=== PATIENT | female | born 1970 | race Caucasian/White ===

== ENCOUNTER 2016-10-21 05:46 | Observation (INO) | payer BC ==
[2016-10-15 11:48] VITALS: BMI 32.0
--- NOTE | 2016-10-15 12:19 | PAT Medication Instructions ---
Service Date Oct 15, 2016. Current Home Medication List Cetirizine (Zyrtec), 10 MG PO QAM Cyanocobalamin (Vitamin B12 500MCG), 3,000 MCG PO 2XWEEK Ergocalciferol (Vitamin D 08111 Unit), 1 TAB PO WK Pantoprazole (Protonix), 40 MG PO BID PRN for RN Topiramate (Topamax), 50 MG PO BID [Vitamin B12 Inj], 1 DOSE INJ MONTHLY Medication Instructions For Your Scheduled Surgery - Continue as usual: Ergocalciferol (Vitamin D 52380 Unit), 1 TAB PO WK [Vitamin B12 Inj], 1 DOSE INJ MONTHLY Cyanocobalamin (Vitamin B12 500MCG), 3,000 MCG PO 2XWEEK - Hold the following medications the morning of surgery: Cetirizine (Zyrtec), 10 MG PO QAM - Take the following medications the morning of surgery with a sip of water: Topiramate (Topamax), 50 MG PO BID Pantoprazole (Protonix), 40 MG PO BID PRN for RN - Take the following medications as scheduled the night before surgery: Topiramate (Topamax), 50 MG PO BID Pantoprazole (Protonix), 40 MG PO BID PRN for RN If you have any questions please call us at [phone] (Natalia Mahan PA-C) or [phone] or [phone]
[2016-10-15 13:24] LABS: PARTIAL THROMBOPLASTIN RATIO 1.1; PROTHROMBIN TIME (PATIENT) 10.7 SECONDS (9.0-12.0)
[2016-10-15 13:33] LABS: BASO % 0.7 %; BASO ABS # 0.04 K/uL (0-0.2); COMPLETE YES; EOS % 2.4 %; HEMATOCRIT 40.2 % (37-47); IG% 0.2 %; LYMPH % 41.8 %; LYMPH ABS # 2.31 K/uL (1.2-3.4); MEAN CELL VOLUME 90.5 fL (80-100); MEAN CORPUSCULAR HEMOGLOBIN 31.8 pg (25-34); MEAN CORPUSCULAR HGB CONC 35.1 g/dl (32-36); MEAN PLATELET VOLUME 10.3 fL (7.4-10.4); MONO % 6.5 %; NEUT % 48.4 %; PLATELET COUNT 226 K/uL (130-400); RED BLOOD COUNT 4.44 M/uL (4.2-5.4); WHITE BLOOD COUNT 5.53 K/uL (4.8-10.8)
[2016-10-15 16:59] LABS: POTASSIUM 4.2 mmol/L (3.5-5.1)
[2016-10-15 17:00] LABS: CALCIUM 9.2 mg/dl (8.5-10.1)
[2016-10-15 17:01] LABS: BUN/CREATININE RATIO 19.9 (10-20)
[2016-10-21] VITALS (10 sets, daily range): BP systolic 94–118; BP diastolic 57–72; PULSE 56–86; TEMP 36–36.8; O2SAT 96–100; Ht 157.5 cm; Wt 80.6 kg
[~2016-10-21] VITALS: Ht 157.5 cm; Wt 80.6 kg
[~2016-10-21 05:46] MED LIST: CETI10TA84 PO; CYAN500T13 PO; ERGO1CAP41 PO; PANT40TA PO; TOPI50TA16 PO; VITAMIN B12 INJ INJ
[2016-10-21] MEDS ORDERED: ENOXAPARIN 40 MG/0.4 ML SYR SQ SCH ×2 (06:00)
[2016-10-21] MEDS ORDERED: CLINDAMYCIN 600 MG/54 ML D5W IV SCH (06:00)
[2016-10-21] MEDS ORDERED: LACTATED RINGER'S 1000ML 1,000 ML IV SCH (06:00)
[2016-10-21] MEDS ORDERED: MIDAZOLAM HCL 1 MG/ML 2ML VIAL ONE (06:47)
[2016-10-21] MEDS ORDERED: FENTANYL CITRATE INJ 50 MCG/1 ML 2 ML VIAL ONE ×4 (06:48→09:44)
[2016-10-21] MEDS ORDERED: SCOPOLAMINE 1.5 MG TDSY TD SCH (07:00)
[2016-10-21] MEDS ORDERED: SCOPOLAMINE 1.5 MG TDSY TD ONE (07:05)
--- NOTE | 2016-10-21 07:09 | History & Physical Bridge Note ---
H&P Re-Evaluation Bridge Note: I have examined the patient, reviewed the History & Physical and in the interval since the performance of the History & Physical I have noted the following changes of clinical significance: Patient prefers to be as small as possible following procedure. No changes noted
[2016-10-21] MEDS ORDERED: FENTANYL CITRATE INJ 50 MCG/1 ML 2 ML VIAL IV PRN (08:00)
[2016-10-21] MEDS ORDERED: ONDANSETRON INJ 2 MG/ML 2 ML VIAL IV PRN ×2 (08:00→11:30)
[2016-10-21] MEDS ORDERED: EpHEDrine SULFATE INJ 50 MG/ML AMP IV PRN (08:00)
[2016-10-21] MEDS ORDERED: HYDROmorphone INJ 1 MG/ML SYR IV PRN (08:00)
[2016-10-21] MEDS ORDERED: ATROPINE SULFATE 0.1 MG/ML 5ML SYR IV PRN (08:00)
[2016-10-21] MEDS ORDERED: LIDOCAINE HCL 2% 2 ML VIAL (20MG/ML) ONE (08:32)
[2016-10-21] MEDS ORDERED: ROCURONIUM BROMIDE 10 MG/ML 5 ML VIAL ONE (08:32)
[2016-10-21] MEDS ORDERED: PROPOFOL IV EMULSION 10 MG/ML 20 ML VIAL IV ONE (08:32)
[2016-10-21] MEDS ORDERED: DEXAMETHASONE SOD INJ 4 MG/ML VIAL ONE (10:08)
[2016-10-21] MEDS ORDERED: ONDANSETRON INJ 2 MG/ML 2 ML VIAL ONE (10:08)
[2016-10-21] MEDS ORDERED: ACETAMINOPHEN 1000 MG/100 ML IV IV ONE (10:26)
[2016-10-21] MEDS ORDERED: LIDOCAINE/EPINEPHRINE 1% 20 ML VIAL INJ ONE (10:49)
[2016-10-21] MEDS ORDERED: BUPIVACAINE 0.25% 30 ML VIAL INJ ONE (10:49)
--- NOTE | 2016-10-21 11:13 | [facility] Post Operative Brief Note ---
Immediate Operative Summary Operative Date Oct 21, 2016. Pre-Operative Diagnosis Bilateral Symptomatic Macromastia Post-Operative Diagnosis Bilateral Symptomatic Macromastia Procedure(s) Performed Bilateral Breast Reduction Surgeon Dr. Priscilla Harrington [employer] Surgeon(s) Kalee Bowers PA-C Estimated Blood Loss 100ml Findings bilateral NACs pink and viable at close of case Specimens A. Left Breast Tissue-Weight 518 grams-Sent to lab at 0906. B. Right Breast Tissue-Weight 450 grams-Sent to lab at 1032. Drains JPx2 Anesthesia GET Complication(s) None Disposition Recovery Room / PACU
[2016-10-21] MEDS ORDERED: MoRPHine SULFATE 2 MG/ML CARP IV PRN ×2 (11:30)
[2016-10-21] MEDS ORDERED: PROMETHAZINE HCL INJ 12.5 MG in SODIUM CHLORIDE 0.9% 50ML 50 ML IV PRN (11:30)
[2016-10-21] MEDS ORDERED: MoRPHine SULFATE 4 MG/ML 1 ML CARP\\VIAL IV PRN (11:30)
[2016-10-21] MEDS ORDERED: PANTOprazole SOD 40 MG TAB PO PRN (11:30)
[2016-10-21] MEDS ORDERED: ACETAMINOPHEN 325 MG TAB PO PRN (11:30)
[2016-10-21] MEDS ORDERED: DiphenhydrAMINE HCL 50 MG/ML VIAL IV PRN (11:30)
[2016-10-21] MEDS ORDERED: OXYCODONE/ACETAMINOPHEN 5-325 TAB PO PRN ×2 (11:30)
[2016-10-21] MEDS ORDERED: OXAZEPAM 10MG CAP PO PRN (11:30)
[2016-10-21] MEDS ORDERED: IV FLUIDS COMPLETED PRN (11:45)
--- NOTE | 2016-10-21 12:04 | Anesthesiology Progress Note ---
Anesthesia Post Op Note Date & Time Oct 21, 2016 at 12:04 Vital Signs Pain Intensity: 0 Vital Signs Past 12 Hours Date Time Temp Pulse Resp B/P Pulse Ox O2 Delivery O2 Flow Rate FiO2 10/21/16 11:28 36.0 81 12 124/73 100 Mask 10 10/21/16 06:06 36.3 86 16 118/63 99 Room Air Notes Mental Status: alert / awake / arousable, participated in evaluation Pt Amnestic to Procedure: Yes Nausea / Vomiting: adequately controlled Pain: adequately controlled Airway Patency, RR, SpO2: stable & adequate BP & HR: stable & adequate Hydration State: stable & adequate Anesthetic Complications: no major complications apparent
[2016-10-21] MEDS ORDERED: MoRPHine SULFATE 4 MG/ML 1 ML CARP\\VIAL ONE (12:30)
[2016-10-21] MEDS: CHECK SCOPOLAMINE PATCH PLACEMENT SCH ×3 (13:03→23:32)
[2016-10-21] MEDS: LACTATED RINGER'S 1000ML 1,000 ML IV SCH ×2 (13:50→23:32)
--- NOTE | 2016-10-21 14:52 | OPERATIVE REPORT ---
DATE OF OPERATION: 10/21/2016 PREOPERATIVE DIAGNOSIS: Bilateral symptomatic macromastia. POSTOPERATIVE DIAGNOSIS: Same. PROCEDURE: Bilateral reduction mammoplasty. SURGEON: Dr. Priscilla Harrington. THERAPY TECH: Kalee Bowers PA-C. ANESTHESIA: General. COMPLICATIONS: None. INDICATION FOR THE PROCEDURE: The patient is a 46-year-old female who presented to my office for evaluation for breast reduction surgery after having longstanding complaints of back, neck and shoulder pain as well as headaches despite significant weight loss. BRIEF DESCRIPTION OF THE PROCEDURE: Risks, benefits, and alternatives of the procedure were explained to the patient, who agreed and signed consent. She was identified and marked in the preoperative holding area. She was brought to the operating room, where she was positioned supine and placed under general anesthesia without incident. The surgical site was prepped and draped sterilely. A time-out procedure was performed. Markings were reassessed and a 7-cm pedicle was marked. I began with the left side. 1% lidocaine with epinephrine was used to anesthetize the planned incisions. A 38-mm cookie cutter was used to circumscribe the nipple-areolar complex. The previously marked 7-cm pedicle was incised using a 15 blade scalpel and deepithelialized. I began with the medial dissection of the pedicle using electrocautery. Cautery was used to incise through dermis and breast parenchyma down to the chest wall, taking care not to undermine the pedicle during dissection. A similar procedure was undertaken on the lateral aspect of the pedicle again taking care not to undercut the pedicle. Lastly, the pedicle was dissected out superiorly using electrocautery. This was carried down to chest wall. I then began incision of the medial breast tissue followed by lateral aspect of the breast tissue. A 15 blade scalpel was used to make the inframammary fold incision and electrocautery was used to deepen the incision through dermis and breast parenchyma. Dissection was then carried superiorly to the length of the superior incision. Superior incision was then incised using a 15 blade scalpel and again dissected using electrocautery. A similar procedure was undertaken laterally and then around the keyhole portion of the incision. Care was taken to leave some fat on the lateral pectoral fascia in order to protect the T4 intercostal nerve. Hemostasis was achieved with electrocautery. Specimen was passed off for weighing. The left breast tissue weight was 518 grams. The wound was irrigated with normal saline. Hemostasis was achieved with electrocautery. 0.25% Marcaine plain was used to anesthetize the incisions as well as the pectoralis fascia. A 15-Kazakh Daryl drain was brought out through a separate stab incision. The nipple-areolar complex was advanced into the keyhole using 2-0 Vicryl deep dermal suture. The T-junction was approximated using 2-0 Vicryl deep dermal suture. The wound was closed first in lateral to mid breast direction using 2-0 Vicryl deep dermal sutures and then medial to mid breast using 2-0 Vicryl deep dermal sutures. Vertical limb was reapproximated using 2-0 Vicryl deep dermals. The nipple-areolar complex was also inset using 2-0 Vicryl deep dermals. Next, the superficial dermal layer was closed using 2-0 PDO running Quill suture along the inframammary fold and 3-0 PDS for the vertical limb and nipple-areolar complex incisions. Lastly, a 3-0 Monocryl running subcuticular suture was placed. The inframammary fold as well as vertical limb were dressed using Prineo and Dermabond was placed around the nipple-areolar complex. A similar procedure was undertaken on the right side. Total resection weight for the right breast, which was smaller in size preoperatively, 450 grams. At the end of the case nipple-areolar complexes were pink and viable and there was excellent symmetry between the breasts. Dry dressings and a surgical bra were placed. The patient was awakened and transferred to the recovery room in satisfactory condition. Kalee Bowers PA-C was present and scrubbed throughout the entire procedure and was instrumental in providing retraction during dissection of the pedicle as well as assisting in simultaneous wound closure. I attest to the content of the Intraoperative Record and any orders documented therein. Any exceptio ns are noted below.
[2016-10-21] MEDS: CLINDAMYCIN IV 600 MG in DEXTROSE 5% ADD-VANTAGE 50ML 50 ML IV SCH ×2 (15:49→23:32)
[2016-10-21] MEDS: TOPIRAMATE 25 MG TAB PO SCH (21:41)
[2016-10-22 03:51] VITALS: BP 94/58; PULSE 60; TEMP 37; O2SAT 96
[2016-10-22 07:58] VITALS: BP 89/54; PULSE 62; TEMP 36.9; O2SAT 96
--- NOTE | 2016-10-22 08:13 | Anesthesiology Progress Note ---
Anesthesia Post Op Note Date & Time Oct 22, 2016 at 08:12 Vital Signs Vital Signs Past 12 Hours Date Time Temp Pulse Resp B/P Pulse Ox O2 Delivery O2 Flow Rate FiO2 10/22/16 07:58 36.9 62 18 89/54 96 Room Air 10/22/16 03:51 37.0 60 16 94/58 96 Room Air 10/21/16 23:45 36.7 56 14 94/57 98 Room Air 10/21/16 23:35 Room Air Notes Mental Status: alert / awake / arousable, participated in evaluation Pt Amnestic to Procedure: Yes Nausea / Vomiting: adequately controlled Pain: adequately controlled Airway Patency, RR, SpO2: stable & adequate BP & HR: stable & adequate Hydration State: stable & adequate Anesthetic Complications: no major complications apparent
[2016-10-22 08:22] VITALS: BP 95/64
[2016-10-22] MEDS: CLINDAMYCIN IV 600 MG in DEXTROSE 5% ADD-VANTAGE 50ML 50 ML IV SCH (08:29)
[2016-10-22] MEDS: CHECK SCOPOLAMINE PATCH PLACEMENT SCH (08:30)
[2016-10-22] MEDS: TOPIRAMATE 25 MG TAB PO SCH (08:31)
--- NOTE | 2016-10-22 08:52 | Discharge Instructions ---
Discharge Instructions Admission Reason for Admission: Bilateral Symptomatic Macromastia Discharge Discharge Diagnosis / Problem: macromastia Discharge Goals Goal(s): Decrease discomfort Activity Recommendations Activity Limitations: as noted below ACTIVITY RECOMMENDATIONS: __Normal activities _x_No bending, lifting or straining __No driving __Driving allowed when you are off pain medications __Walking permitted __You should have help at home for ___ days DRESSINGS: __No dressings required _x_Keep dressings dry/in place until first office visit __Remove dressings ___ and leave dressings off __Apply ice ___ days __Remove dressings and reapply garment __Apply antibiotic ointment (Bacitracin, Neosporin, etc) to wounds 3-4 times/ day for 10 days BATHING: _x_Keep dressings dry _x_Sponge bathing permitted __Showering permitted _x_No swimming, hot tubs or soaking in a tub MEDICATIONS: Resume previous medications unless instructed otherwise by your surgeon. _x_Do not use aspirin, Motrin, Advil or Ibuprofen as these may promote bleeding. Please use Tylenol. _x_Prescription(s) provided: pain medication provided at your last office visit OTHER INSTRUCTIONS: __Record drain output 2-3 times per day SPECIAL CARE INSTRUCTIONS: * It is normal to have a mild fever after surgery. If your temperature is higher than 101.5 degrees F, please call the office at [phone]. * Constipation is a typical side effect of pain medication. An over-the- counter stool softener will help relieve this. * Leaking around surgical drains may occur and should not cause concern. Sometimes these drains become clogged. If this happens, remove the bulb and milk the clot out of the tube, then replace the bulb. * Drainage from wounds after liposuction is normal and should be expected. Garments will become soiled. You should protect furniture and bedding. This drainage should mostly subside within 2-3 days. Leave garments in place unless instructed to remove them. * If you have unusual drainage from a wound or are concerned you have an infection or have any questions or concerns, please call the office at [phone]. FOLLOW UP VISIT: If not already scheduled, please call the office, , when you return home after surgery to schedule an appointment to be seen in _1_ days. . Current Hospital Diet Patient's current hospital diet: Regular Diet Discharge Diet Recommended Diet: Regular Diet Procedures Procedures Performed: Bilateral Breast Reduction Pending Studies Studies pending at discharge: yes List of pending studies: pathology Medical Emergencies . Who to Call and When: Medical Emergencies: If at any time you feel your situation is an emergency, please call 911 immediately. . Non-Emergent Contact Non-Emergency issues call your: Primary Care Provider, Surgeon . "Provider Documentation" section prepared by Kalee Bowers. VTE Core Measure Inpt VTE Proph given/why not?: Enoxaparin (Lovenox)SQ, SCD's
[2016-10-22] MEDS ORDERED: MULTIVITAMIN TAB PO SCH (09:00)
[2016-10-22] MEDS ORDERED: ENOXAPARIN 40 MG/0.4 ML SYR SQ SCH (09:00)
[2016-10-22] MEDS ORDERED: CETIRIZINE HCL 10 MG TAB PO SCH (09:00)
[2016-10-22] MEDS: LACTATED RINGER'S 1000ML 1,000 ML IV SCH (09:20)
[2016-10-22] MEDS ORDERED: SODIUM CHLORIDE 0.9% 1000ML 1,000 ML IV SCH (10:32)
[2016-10-22 10:34] VITALS: BP 95/64; PULSE 62; TEMP 36.9; O2SAT 96
[2016-10-22] MEDS ORDERED: METOCLOPRAMIDE HCL INJ 5 MG/ML 2 ML VIAL IV PRN (10:45)
[2016-10-22] MEDS ORDERED: OXYCODONE/ACETAMINOPHEN 5-325 TAB PO PRN ×2 (10:45)
[2016-10-22] MEDS ORDERED: ONDANSETRON INJ 2 MG/ML 2 ML VIAL IV PRN (10:45)
[2016-10-22] MEDS ORDERED: ACETAMINOPHEN 325 MG TAB PO PRN (10:45)
--- NOTE | 2016-10-22 11:08 | Surgery Progress Note ---
Surgery Progress Note Date of Service Oct 22, 2016. Subjective Post OP Day: 1 + feeling well, + pain controlled, No complaints Objective Vital Signs: Date Time Temp Pulse Resp B/P Pulse Ox O2 Delivery O2 Flow Rate FiO2 10/22/16 10:34 36.9 62 18 96 Room Air 10/22/16 08:22 95/64 10/22/16 08:00 Room Air 10/22/16 07:58 36.9 62 18 89/54 96 Room Air 10/22/16 03:51 37.0 60 16 94/58 96 Room Air 10/21/16 23:45 36.7 56 14 94/57 98 Room Air 10/21/16 23:35 Room Air 10/21/16 19:15 36.8 56 16 99/62 96 Room Air 10/21/16 16:00 96 Nasal Cannula 2.0 10/21/16 15:25 36.8 69 18 102/67 96 Room Air 10/21/16 14:25 62 18 101/66 98 10/21/16 13:25 74 18 108/72 96 10/21/16 13:05 Nasal Cannula 2.0 10/21/16 13:04 100 Nasal Cannula 2.0 10/21/16 12:55 36.0 74 16 115/72 10/21/16 12:30 36.6 77 16 108/68 100 2.0 10/21/16 12:14 77 17 10/21/16 12:14 77 17 100 10/21/16 12:13 119/73 10/21/16 12:09 65 15 100 10/21/16 12:09 68 15 10/21/16 12:08 112/70 10/21/16 12:05 36.1 63 13 110/71 100 Room Air 2 10/21/16 12:04 68 16 10/21/16 12:04 68 16 100 10/21/16 12:03 65 14 110/71 100 10/21/16 12:03 65 14 10/21/16 11:58 68 14 120/75 100 10/21/16 11:58 69 14 10/21/16 11:53 77 16 10/21/16 11:53 76 16 119/75 100 10/21/16 11:48 71 14 10/21/16 11:48 70 14 121/73 100 1/30/17 11:43 69 14 10/21/16 11:43 68 14 115/70 100 10/21/16 11:38 70 17 118/72 100 10/21/16 11:38 69 17 10/21/16 11:33 88 19 110/65 100 10/21/16 11:33 86 19 10/21/16 11:28 70 15 10/21/16 11:28 36.0 81 12 124/73 100 Mask 10 10/21/16 11:28 68 15 117/66 100 Physical Exam: Daryl drainage (scant serous and sanginous drainage) General Appearance: WD/WN, no apparent distress Incision(s): clean, dry, intact, no erythema, findings (nipples pink with sensation bilaterally ) Laboratory Results: Results Past 24 Hours Test 10/21/16 15:34 Range/Units Bedside Glucose 124 70-90 mg/dl Assessment & Plan s/p bilateral breast reduction 1. doing well post-op. Drains removed. Will d/c home
--- NOTE | 2016-10-22 12:32 | Discharge Summary ---
Discharge Summary Admission Date/Reason Oct 21, 2016 at 11:24 Bilateral Symptomatic Macromastia. Discharge Date/Disposition Oct 22, 2016 Home Diagnosis Principal Diagnosis: macromastia Procedure(s) Performed bilateral breast reduction Medication Reconciliation Continued Medications: Cetirizine (Zyrtec) 10 Mg Tab 10 MG PO QAM, TAB Cyanocobalamin (Vitamin B12 500MCG) 500 Mcg Tab 3000 MCG PO 2XWEEK, TAB FRIDAY AND FRIDAY Ergocalciferol (Vitamin D 24410 Unit) 50,000 Unit Cap 1 TAB PO WK, CAP THURSDAYS Pantoprazole (Protonix) 40 Mg Tab 40 MG PO BID PRN for RN, #30 TAB Topiramate (Topamax) 50 Mg Tab 50 MG PO BID, TAB [Vitamin B12 Inj] () 1 DOSE INJ MONTHLY BEGINNING OF MONTH Admission Physical Exam As per Admitting History & Physical. Hospital Course Patient presented to [facility] with history of macromastia. She was taken to the OR and underwent bilateral breast reduction surgery. She tolerated the procedure well and there were no complications. Two marika drains were placed intraoperatively. On POD#1, her VSS, pain controlled and she was tolerating a regular diet. Her drains had 10cc of serosanguineous fluid bilaterally. They were removed. On exam, her incisions were CDI, and her nipples were pink and with sensation bilaterally. She was discharged home with instructions to follow- up in the office in one day. Discharge Instructions Please refer to the electronic Patient Visit Report (Discharge Instructions) for additional information.
== END 2016-10-22 13:30 | disposition home or self-care (01) ==
LOC: ENRESERVDT → ENRESERVTM → C.ACU 05:46 → C.MSW 11:24
PROVIDERS: ADMIT Plastic Surgery; ATTEND Plastic Surgery
DX: N62 Hypertrophy of breast (principal); E65 Localized adiposity; Z68.32 Body mass index [BMI] 32.0-32.9, adult; F41.8 Other specified anxiety disorders; K21.9 Gastro-esophageal reflux disease without esophagitis; Z98.84 Bariatric surgery status; E78.5 Hyperlipidemia, unspecified; E66.9 Obesity, unspecified; E53.8 Deficiency of other specified B group vitamins; E55.9 Vitamin D deficiency, unspecified; Z82.69 Family history of other diseases of the musculoskeletal system and connective tissue; Z83.511 Family history of glaucoma; Z82.0 Family history of epilepsy and other diseases of the nervous system; Z82.61 Family history of arthritis; Z80.0 Family history of malignant neoplasm of digestive organs; Z88.6 Allergy status to analgesic agent; Z88.0 Allergy status to penicillin; R00.2 Palpitations; Z88.8 Allergy status to other drugs, medicaments and biological substances; Z91.048 Other nonmedicinal substance allergy status

== ENCOUNTER → 2018-01-13 | Outpatient (CLI) | payer BC ==
[~2018-01-13] MED LIST changes: -ERGO1CAP41 PO; +ERGO500011 PO
[2018-01-13 17:46] LABS: BASO % 0.5 %; BASO ABS # 0.03 K/uL (0-0.2); EOS % 2.4 %; EOS ABS # 0.14 K/uL (0-0.5); HEMATOCRIT 40.6 % (37-47); LYMPH % 41.8 %; LYMPH ABS # 2.43 K/uL (1.2-3.4); MEAN CELL VOLUME 92.9 fL (80-100); MEAN CORPUSCULAR HGB CONC 34.5 g/dl (32-36); MEAN PLATELET VOLUME 10.1 fL (7.4-10.4); MONO % 7.1 %; MONO ABS # 0.41 K/uL (0.11-0.59); NEUT % 48.2 %; PLATELET COUNT 259 K/uL (130-400); RED CELL DISTRIBUTION WIDTH CV 12.7 % (11.5-14.5); RED CELL DISTRIBUTION WIDTH SD 43.3 fL (36.4-46.3); WHITE BLOOD COUNT 5.81 K/uL (4.8-10.8)
[2018-01-13 18:08] LABS: BLOOD UREA NITROGEN 21 mg/dl (7-18); CALCIUM 8.9 mg/dl (8.5-10.1); CARBON DIOXIDE 24 mmol/L (21-32); CREATININE 1.07 mg/dl (0.60-1.20); GLUCOSE 93 mg/dl (70-99); POTASSIUM 3.7 mmol/L (3.5-5.1); SODIUM 138 mmol/L (136-145)
== END | disposition home or self-care (01) ==
LOC: C.LABMFLN 15:04
PROVIDERS: ATTEND Family Medicine
DX: K21.9 Gastro-esophageal reflux disease without esophagitis (principal); E07.89 Other specified disorders of thyroid

== ENCOUNTER → 2018-05-11 | Outpatient (CLI) | payer BC | END | disposition home or self-care (01) | LOC: C.LABMFLN 11:15 | PROVIDERS: ATTEND Family Medicine | DX: E78.5 Hyperlipidemia, unspecified (principal); E03.9 Hypothyroidism, unspecified ==